=== PATIENT | female | born 1975 | race Caucasian/White ===

== ENCOUNTER 2020-12-13 15:04 | Emergency (ER) | payer OTHER ==
[2020-12-13 15:19] VITALS: BP 124/85; PULSE 73; TEMP 97.9; BMI 32.3
[2020-12-13] MEDS ORDERED: KETOROLAC TROMETHAMINE 30 MG/1 ML VIAL IVPB ONE (15:58)
[2020-12-13] MEDS ORDERED: METOCLOPRAMIDE HCL INJECTION 10 MG/2 ML VIAL IVPUSH ONE (15:58)
[2020-12-13] MEDS ORDERED: SODIUM CHLORIDE 0.9% 500 ML INFUS.BAG IV ONE (15:58)
[2020-12-13] MEDS ORDERED: KETOROLAC TROMETHAMINE 30 MG/1 ML VIAL ONE (16:57)
[2020-12-13] MEDS ORDERED: METOCLOPRAMIDE HCL INJECTION 10 MG/2 ML VIAL ONE (16:57)
[2020-12-13 17:53] LABS: BASO % 0.4 % (0-2.0); EOS % 0.8 % (0-4.5); HEMATOCRIT 37.3 % (32.4-45.2); HEMOGLOBIN 12.7 GM/dL (10.7-15.3); LYMPH % 17.7 % (8-40); MCH 30.6 pg (25.7-33.7); MCHC 34.1 g/dl (32.0-36.0); MEAN CELL VOLUME 89.8 fl (80-96); MEAN PLT VOLUME 8.9 fl (7.5-11.1); MONO % 3.5 % (3.8-10.2); NEUT % 77.6 % (42.8-82.8); PLATELET COUNT 288 10^3/uL (134-434); RBC 4.15 M/mm3 (3.60-5.2); RDW 13.2 % (11.6-15.6); WHITE BLOOD COUNT 8.6 K/mm3 (4.0-10.0)
[2020-12-13 17:58] LABS: CALCIUM 9.3 mg/dL (8.5-10.1)
[2020-12-13 17:59] LABS: ALBUMIN 4.1 g/dl (3.4-5.0)
[2020-12-13 18:02] LABS: CREATININE 0.8 mg/dL (0.55-1.3)
[2020-12-13 18:03] LABS: BILIRUBIN,TOTAL 0.3 mg/dL (0.2-1); TOT PROT 8.2 g/dl (6.4-8.2)
== END 2020-12-13 19:11 | disposition home or self-care (01) ==
LOC: JER 15:04
PROC: 3E0333Z Introduction of Anti-inflammatory into Peripheral Vein, Percutaneous Approach (ICD-10-PCS; principal; 2020-12-13)
PROC: 3E033GC Introduction of Other Therapeutic Substance into Peripheral Vein, Percutaneous Approach (ICD-10-PCS; 2020-12-13)
DX: G44.89 Other headache syndrome (principal)
CPT/HCPCS: 36415; 80053; 85025; 99284-25

== ENCOUNTER 2022-11-28 19:13 | Emergency (ER) | payer OTHER ==
[2022-11-28 19:16] VITALS: BP 129/80; PULSE 65; RESP 20; TEMP 99.2; BMI 29.0
[2022-11-28] MEDS ORDERED: ACETAMINOPHEN 1000 MG/100 ML BAG IVPB ONE (21:11)
[2022-11-28] MEDS ORDERED: FAMOTIDINE 20 MG/50 ML IVPB 20 MG/50 ML MG IVPB ONE ×2 (21:11→21:22)
[2022-11-28] MEDS ORDERED: MAG HYDROX/AL HYDROX/SIMETH 30 ML UNIT-DOSE CUP PO ONE (21:11)
[2022-11-28] MEDS ORDERED: LIDOCAINE 5% TOPICAL PATCH TP ONE (21:12)
[2022-11-28] MEDS ORDERED: ACETAMINOPHEN INJECTION 100 ML IVPB ONE (21:22)
[2022-11-28] MEDS ORDERED: MAG HYDROX/AL HYDROX/SIMETH 30 ML UNIT-DOSE CUP ONE (21:22)
[2022-11-28] MEDS ORDERED: LIDOCAINE 5% TOPICAL PATCH ONE (21:22)
[2022-11-28 21:54] LABS: BASO % 0.5 % (0-2.0); EOS % 2.3 % (0-4.5); HEMATOCRIT 34.9 % (32.4-45.2); HEMOGLOBIN 11.2 GM/dL (10.7-15.3); MCH 29.7 pg (25.7-33.7); MCHC 32.1 g/dl (32.0-36.0); MEAN CELL VOLUME 92.6 fl (80-96); MEAN PLT VOLUME 9.8 fl (7.5-11.1); MONO % 5.7 % (3.8-10.2); NEUT % 65.5 % (42.8-82.8); PLATELET COUNT 227 10^3/uL (134-434); RBC 3.77 M/mm3 (3.60-5.2); RDW 13.4 % (11.6-15.6); WHITE BLOOD COUNT 7.4 K/mm3 (4.0-10.0)
[2022-11-28] MEDS ORDERED: LIDOCAINE PATCH REMOVAL MC ONE (22:00)
[2022-11-28 22:09] LABS: POTASSIUM 4.3 mmol/L (3.5-5.1)
[2022-11-28 22:12] LABS: ALBUMIN 3.5 g/dl (3.4-5.0); BLOOD UREA NITROGEN 15.6 mg/dL (7-18)
[2022-11-28 22:15] LABS: CREATININE 0.8 mg/dL (0.55-1.3)
[2022-11-28 22:16] LABS: BILIRUBIN,TOTAL 0.4 mg/dL (0.2-1); TOT PROT 7.3 g/dl (6.4-8.2)
[2022-11-28 22:23] LABS: CALCIUM 9.3 mg/dL (8.5-10.1)
[2022-11-28] MEDS ORDERED: ALBUTEROL SO4 HFA INHALER IH PRN (22:50)
== END 2022-11-28 22:54 | disposition home or self-care (01) ==
LOC: JER 19:13
PROC: 3E033GC Introduction of Other Therapeutic Substance into Peripheral Vein, Percutaneous Approach (ICD-10-PCS; principal; 2022-11-28)
PROC: 3E033NZ Introduction of Analgesics, Hypnotics, Sedatives into Peripheral Vein, Percutaneous Approach (ICD-10-PCS; 2022-11-28)
DX: K21.9 Gastro-esophageal reflux disease without esophagitis (principal); M54.9 Dorsalgia, unspecified; R06.02 Shortness of breath; R10.13 Epigastric pain
CPT/HCPCS: 36415; 71046-TC-FY; 80053; 83690; 84484; 85025; 93005; 93010; 99285-25

== ENCOUNTER 2025-01-22 05:12 | Emergency (ER) | payer OTHER ==
[2025-01-22 05:17] VITALS: TEMP 98.1; BMI 29.3
[2025-01-22] MEDS: ALBUTEROL SO4 2.5/IPRATROPIUM 0.5 INH SOL 3 ML VIAL.NEB. NEB SCH (05:55)
[2025-01-22] MEDS ORDERED: predniSONE 20 MG TABLET (UD) ONE (06:23)
[2025-01-22] MEDS: predniSONE 20 MG TABLET (UD) PO ONE (06:27)
[2025-01-22 06:31] VITALS: BP 125/91; PULSE 105; RESP 14
== END 2025-01-22 06:59 | disposition home or self-care (01) ==
LOC: JER 05:12
PROC: 3E0F7GC Introduction of Other Therapeutic Substance into Respiratory Tract, Via Natural or Artificial Opening (ICD-10-PCS; principal; 2025-01-22)
DX: J45.909 Unspecified asthma, uncomplicated (principal); R09.81 Nasal congestion; R09.89 Other specified symptoms and signs involving the circulatory and respiratory systems
CPT/HCPCS: 71045-TC-FY; 87637-QW; 93005; 93010; 99285-25